=== PATIENT | male | born 1950 | race African-American/Black ===

== ENCOUNTER 2019-07-08 17:46 | Inpatient (IN) | payer MEDICARE, OTHER ==
[~2019-07-08] VITALS: Ht 175.3 cm; Wt 68.0 kg
[2019-07-08 19:21] LABS: BASOPHILS % 1.3 % (0.0-2.0); EOSINOPHILS % 3.9 % (0.0-5.0); HEMATOCRIT. 42.2 % (42.0-52.0); HEMOGLOBIN. 14.5 g/dL (14.0-18.0); LYMPHOCYTES % 32.3 % (20.0-50.0); MEAN CORPUSCULAR HEMOGLOBIN 32.4 pg (28.0-32.0); MEAN CORPUSCULAR VOLUME 94.1 fL (80.0-94.0); MEAN PLATELET VOLUME 8.8 fl (7.4-10.4); MONOCYTES % 9.7 % (2.0-8.0); NEUTROPHILS % 52.8 % (40.0-76.0); PLATELET 225 x1000/uL (130-400); RED BLOOD CELL COUNT 4.49 mill/uL (4.7-6.1); RED CELL DISTRIBUTION WIDTH 13.4 % (11.6-14.6)
[2019-07-08 19:23] LABS: CHLORIDE 108 mEq/L (98-107)
[2019-07-08 19:28] LABS: ETHANOL BLOOD < 10 mg/dL; PROTHROMBIN TIME 10.9 sec (9.6-11.0)
[2019-07-08] MEDS ORDERED: ONDANSETRON HCL 4MG/2ML INJ IV STA (19:39)
[2019-07-08] MEDS ORDERED: DEXT 5%/0.45% NACL 1000ML 1,000 ML IV ONE (19:39)
[2019-07-08] MEDS ORDERED: MORPHINE SULFATE 4 MG/ML CPJ (NOT FOR IM USE) IV STA (19:39)
[2019-07-08] MEDS ORDERED: PANTOPRAZOLE 40MG DR TABLET PO ONE (20:15)
[2019-07-08] MEDS ORDERED: SUCRALFATE 1 G/10 ML UDC PO ONE (20:15)
[2019-07-08 21:00] LABS: CLARITY URINE CLEAR (CLEAR); COLOR URINE YELLOW (YELLOW); KETONES URINE TRACE (NEGATIVE); LEUKOCYTE ESTERASE URINE TRACE (NEGATIVE); NITRITE URINE NEGATIVE (NEGATIVE); OCCULT BLOOD URINE NEGATIVE (NEGATIVE); PH URINE 7.5 (4.5-8.0); PROTEIN URINE TRACE (NEGATIVE); SPECIFIC GRAVITY URINE 1.026 (1.005-1.030)
[2019-07-08 21:10] LABS: *AMPHETAMINES SCREEN URINE NEGATIVE (NEGATIVE); *BARBITURATES SCREEN URINE NEGATIVE (NEGATIVE); *BENZODIAZEPINES SCREEN URINE NEGATIVE (NEGATIVE); *COCAINE SCREEN URINE PRESUMTIVE POSITIVE (NEGATIVE); CANNABINOID URINE SCREEN NEGATIVE (NEGATIVE); METHADONE URINE SCREEN NEGATIVE (NEGATIVE); OPIATES URINE SCREEN NEGATIVE (NEGATIVE); PHENCYCLIDINE URINE SCREEN NEGATIVE (NEGATIVE)
[2019-07-08 23:30] VITALS: BP 130/78
[2019-07-09] VITALS: BP 130/78
[2019-07-09] MEDS ORDERED: ONDANSETRON HCL 4MG/2ML INJ IV PRN (01:15)
[2019-07-09] MEDS ORDERED: MORPHINE SULFATE 2 MG/ML CPJ (NOT FOR IM USE) IV PRN (01:15)
[2019-07-09] MEDS: DEXT 5%/0.45% NACL KCL 20MEQ/L 1,000 ML IV SCH ×2 (03:38→14:12)
[2019-07-09 04:00] VITALS: BP 141/86
[2019-07-09 08:00] VITALS: BP 141/84
[2019-07-09] MEDS: TAMSULOSIN HCL 0.4MG SR CAPSULE PO SCH (09:00)
[2019-07-09 12:00] VITALS: BP 133/86
[2019-07-09 16:00] VITALS: BP 124/68
[2019-07-09] MEDS ORDERED: TAMS-11 MT (16:20)
[2019-07-09 18:18] LABS: HEPATITIS B SURFACE ANTIGEN NEGATIVE
[2019-07-09 18:48] LABS: HEPATITIS A AB IGM NEGATIVE (NEGATIVE)
[2019-07-09 20:00] VITALS: BP 130/71
[2019-07-10] VITALS: BP 124/65
[2019-07-10] MEDS: DEXT 5%/0.45% NACL KCL 20MEQ/L 1,000 ML IV SCH ×2 (00:09→10:00)
[2019-07-10 04:00] VITALS: BP 137/84
[2019-07-10 08:00] VITALS: BP 144/84
[2019-07-10] MEDS: TAMSULOSIN HCL 0.4MG SR CAPSULE PO SCH (09:09)
[2019-07-10 12:00] VITALS: BP 132/60
[2019-07-10 16:00] VITALS: BP 129/77
[2019-07-10 19:55] VITALS: BP 123/69
[2019-07-11] VITALS: BP 113/68
[2019-07-11 04:00] VITALS: BP 134/60
[2019-07-11 08:00] VITALS: BP 124/66
[2019-07-11] MEDS: TAMSULOSIN HCL 0.4MG SR CAPSULE PO SCH (08:46)
[2019-07-11 12:00] VITALS: BP 114/70
[2019-07-11 16:00] VITALS: BP 108/64
[2019-07-11] MEDS: DEXT 5%/0.45% NACL KCL 20MEQ/L 1,000 ML IV SCH (16:00)
[2019-07-11] MEDS ORDERED: ZOLPIDEM TARTRATE 5MG TABLET PO PRN (19:00)
[2019-07-11 20:00] VITALS: BP 131/63
[2019-07-12] VITALS: BP 128/65
[2019-07-12] MEDS: DEXT 5%/0.45% NACL KCL 20MEQ/L 1,000 ML IV SCH (02:00)
[2019-07-12 04:00] VITALS: BP 129/63
[2019-07-12 08:00] VITALS: BP_SYST 101; BP_SYST 91; BP_DIAS 33; BP_DIAS 69
[2019-07-12] MEDS: TAMSULOSIN HCL 0.4MG SR CAPSULE PO SCH (08:18)
[2019-07-12 12:00] VITALS: BP 102/61
[2019-07-12 15:12] VITALS: BP 102/61
[2019-07-12 16:00] VITALS: BP 101/60
== END 2019-07-12 17:24 | disposition home or self-care (01) | DRG 395 ==
LOC: ER 17:46 → 6EST 20:57 → ENRESERV 21:50
PROVIDERS: ADMIT Internal Medicine; ATTEND Internal Medicine
DX: K40.90 Unilateral inguinal hernia, without obstruction or gangrene, not specified as recurrent (principal); K31.89 Other diseases of stomach and duodenum; K76.89 Other specified diseases of liver; C61 Malignant neoplasm of prostate; E87.8 Other disorders of electrolyte and fluid balance, not elsewhere classified; F14.90 Cocaine use, unspecified, uncomplicated; F17.210 Nicotine dependence, cigarettes, uncomplicated; N40.0 Benign prostatic hyperplasia without lower urinary tract symptoms; Z60.2 Problems related to living alone; Z59.0 Homelessness; Z85.46 Personal history of malignant neoplasm of prostate; Z79.899 Other long term (current) drug therapy; Z71.51 Drug abuse counseling and surveillance of drug abuser; Z88.6 Allergy status to analgesic agent
CPT/HCPCS: 36415; 71045; 74176; 76705; 80053; 80305; 80320; 81003; 85025; 86705; 86709; 86803; 87340; 93005; 99285; J2270; J2405; G0480

== ENCOUNTER 2020-01-17 00:40 | Emergency (ER) | payer MEDICARE, OTHER, MEDICAID ==
[~2020-01-17] VITALS: Ht 175.3 cm; Wt 49.0 kg
[~2020-01-17 00:40] MED LIST: TAMS-11 MT
[2020-01-17] MEDS ORDERED: NITROGLYCERIN 0.4MG TABLET SL SL PRN (01:15)
[2020-01-17 01:37] LABS: BASOPHILS % 1.1 % (0.0-2.0); HEMATOCRIT. 42.8 % (42.0-52.0); HEMOGLOBIN. 14.5 g/dL (14.0-18.0); LYMPHOCYTES % 32.8 % (20.0-50.0); MEAN CORPUSCULAR HEMOGLOBIN 32.1 pg (28.0-32.0); MEAN CORPUSCULAR VOLUME 94.5 fL (80.0-94.0); MEAN PLATELET VOLUME 8.9 fl (7.4-10.4); MONOCYTES % 6.8 % (2.0-8.0); NEUTROPHILS % 56.3 % (40.0-76.0); PLATELET 204 x1000/uL (130-400); RED BLOOD CELL COUNT 4.53 mill/uL (4.7-6.1); RED CELL DISTRIBUTION WIDTH 12.7 % (11.6-14.6)
[2020-01-17 01:43] LABS: CHLORIDE 108 mEq/L (98-107)
[2020-01-17 01:47] LABS: ETHANOL BLOOD < 10 mg/dL
[2020-01-17 02:44] LABS: *AMPHETAMINES SCREEN URINE NEGATIVE (NEGATIVE); *BARBITURATES SCREEN URINE NEGATIVE (NEGATIVE); *BENZODIAZEPINES SCREEN URINE NEGATIVE (NEGATIVE); *COCAINE SCREEN URINE PRESUMTIVE POSITIVE (NEGATIVE); METHADONE URINE SCREEN NEGATIVE (NEGATIVE); OPIATES URINE SCREEN NEGATIVE (NEGATIVE)
[2020-01-17 02:45] LABS: CANNABINOID URINE SCREEN NEGATIVE (NEGATIVE); PHENCYCLIDINE URINE SCREEN NEGATIVE (NEGATIVE)
[2020-01-17 06:00] VITALS: BP 123/71
== END 2020-01-17 06:00 | disposition home or self-care (01) ==
LOC: ER 00:40
DX: F14.10 Cocaine abuse, uncomplicated (principal); R06.02 Shortness of breath; F17.210 Nicotine dependence, cigarettes, uncomplicated; Z85.9 Personal history of malignant neoplasm, unspecified; Z88.6 Allergy status to analgesic agent
CPT/HCPCS: 36415; 71045; 80053; 80305; 80320; 83880; 84484; 85025; 93005; 99285; G0480

== ENCOUNTER 2020-07-28 10:38 | Emergency (ER) | payer MEDICARE, OTHER ==
[~2020-07-28] VITALS: Ht 172.7 cm; Wt 70.0 kg
[2020-07-28] MEDS ORDERED: TRAMADOL 50MG TABLET PO ONE (11:30)
[2020-07-28] MEDS ORDERED: ACETAMINOPHEN 325MG TABLET PO ONE (11:30)
[2020-07-28] MEDS ORDERED: TOPUD MT (13:49)
[2020-07-28 14:00] VITALS: BP 118/70
== END 2020-07-28 14:00 | disposition home or self-care (01) ==
LOC: ER 10:38
DX: S03.2XXA Dislocation of tooth, initial encounter (principal); R55 Syncope and collapse; F17.200 Nicotine dependence, unspecified, uncomplicated; F14.10 Cocaine abuse, uncomplicated; Z88.6 Allergy status to analgesic agent; Z98.890 Other specified postprocedural states; Z85.46 Personal history of malignant neoplasm of prostate; Y04.0XXA Assault by unarmed brawl or fight, initial encounter; Y93.89 Activity, other specified; Y92.89 Other specified places as the place of occurrence of the external cause; Y99.8 Other external cause status
CPT/HCPCS: 70486; 99285